=== PATIENT | female | born 1930 | race Caucasian/White ===

== ENCOUNTER → 2016-06-24 | Outpatient (CLI) | payer MEDICARE ==
[2016-02-29 22:20] VITALS: BP 102/56
[~2016-06-24] MED LIST: ACET325T9 PO; ALBU8.5H3 IH; ASPI-482 PO; AZIT1PAC PO; BENZ100C PO; CHLO25TA PO; DIPH25CA58 PO; FAMO1TAB3 PO; FLUO10TA PO; FLUO20CA8 PO; FURO20TA3 PO; MAGN400C PO; MAGN400T22 PO; MAGN400T3 PO; NIFE30TA17 PO; OMEP20TA PO; OPTIVE EYE; OXYM30SP NS; POTA10CA PO; POTA10TA12 PO; POTA20TA4 PO; PRED20TA PO; TRAM50TA PO; VALS160T3 PO; VALS1TAB33 PO; VIT1CAPS12 PO; atorvastatin PO; tylenol arthritis PO
[2016-06-24 08:01] LABS: ALBUMIN/GLOBULIN RATIO 1.1 (1.0-1.7); CREATININE 0.8 mg/dL (0.6-1.0); GFR 68.3; MAGNESIUM 1.7 mg/dL (1.8-2.4); POTASSIUM 3.8 mmol/L (3.5-5.1); TOTAL BILIRUBIN 0.6 mg/dL (0.2-1.0); TOTAL PROTEIN 7.6 g/dL (6.4-8.2)
== END | disposition home or self-care (01) ==
LOC: LAB 07:21
PROVIDERS: ATTEND Nurse Practitioner
DX: E78.5 Hyperlipidemia, unspecified (principal)
CPT/HCPCS: 36415; 80053; 80061; 83735

== ENCOUNTER → 2016-12-17 | Outpatient (CLI) | payer MEDICARE ==
[2016-02-29 22:20] VITALS: BP 102/56
[~2016-12-17] MED LIST changes: -ALBU8.5H3 IH; +ALBU8.5H8 IH; -OMEP20TA PO; +OMEP20TA8 PO
[2016-12-17 08:48] LABS: ALBUMIN 3.8 g/dL (3.4-5.0); ALBUMIN/GLOBULIN RATIO 1.2 (1.0-1.7); CALCIUM 8.9 mg/dL (8.5-10.1); CREATININE 0.7 mg/dL (0.6-1.0); GFR 79.7; MAGNESIUM 2.1 mg/dL (1.8-2.4); TOTAL BILIRUBIN 0.8 mg/dL (0.2-1.0); TOTAL PROTEIN 7.1 g/dL (6.4-8.2)
[2016-12-17 13:15] LABS: THYROID STIM HORMONE (TSH) 1.352 uIU/mL (0.358-3.740)
== END | disposition home or self-care (01) ==
LOC: LAB 07:42
PROVIDERS: ATTEND Nurse Practitioner
DX: E78.5 Hyperlipidemia, unspecified (principal); R00.2 Palpitations
CPT/HCPCS: 36415; 80053; 80061; 83735; 84443

== ENCOUNTER → 2017-04-06 | Outpatient (CLI) | payer MEDICARE ==
[2016-02-29 22:20] VITALS: BP 102/56
[2017-04-06 16:06] LABS: BASO % 0 % (0-3); EOS % 0 % (0-3); HEMATOCRIT 43.8 % (36.0-47.0); HEMOGLOBIN 14.8 g/dL (12.0-15.5); LYMPH % 10 % (24-48); MEAN CORPUSCULAR HEMOGLOBIN 30 pg (25-35); MEAN CORPUSCULAR HGB CONC 34 g/dL (31-37); MEAN CORPUSCULAR VOLUME 90 fL (79-100); MONO # 0.7 x10^3/uL (0.0-1.1); MONO % 7 % (0-9); NEUT # 8.6 x10^3uL (1.8-7.7); NEUT % 83 % (31-73); PLATELET COUNT 245 x10^3/uL (140-400); RED BLOOD COUNT 4.87 x10^6/uL (3.50-5.40); RED CELL DISTRIBUTION WIDTH 13.4 % (11.5-14.5); WHITE BLOOD COUNT 10.4 x10^3/uL (4.0-11.0)
[2017-04-06 16:09] LABS: ALBUMIN/GLOBULIN RATIO 1.1 (1.0-1.7); CREATININE 0.8 mg/dL (0.6-1.0); GFR 68.3; POTASSIUM 3.7 mmol/L (3.5-5.1); TOTAL BILIRUBIN 0.5 mg/dL (0.2-1.0); TOTAL PROTEIN 7.6 g/dL (6.4-8.2)
== END | disposition home or self-care (01) ==
LOC: LAB 15:20
PROVIDERS: ATTEND Internal Medicine
DX: R00.2 Palpitations (principal); I10 Essential (primary) hypertension; E78.5 Hyperlipidemia, unspecified; E78.00 Pure hypercholesterolemia, unspecified; Z87.891 Personal history of nicotine dependence
CPT/HCPCS: 36415; 80053; 84443; 85025

== ENCOUNTER → 2017-04-29 | Outpatient (CLI) | payer MEDICARE ==
[2016-02-29 22:20] VITALS: BP 102/56
--- NOTE | 2017-04-29 11:19 | RAD ---
Bone densitometry scan, 04/29/2017: History: Postmenopausal screening The lumbar spine and left hip were examined utilizing a DEXA technique. The bone mineral density in the lumbar spine as measured from the L1-L4 levels is 1.52 g/sq cm. This yields a T score of 2.9 which is in the normal range. Known hypertrophic degenerative changes are presumably elevating this measurement. The total T score at the left hip is -0.6. This value is also in the normal range. This probably more accurately reflects the patient's overall bone mineral density status. IMPRESSION: Normal bone mineral density measurements.
--- NOTE | 2017-04-29 11:43 | RAD ---
DATE: 04/29/2017 EXAM: DIGITAL SCREEN BILAT W/CAD HISTORY: Routine screening COMPARISON: 04/04/2016 This study was interpreted with the benefit of Computerized Aided Detection (CAD). FINDINGS: Breast Density: HETERO The breast parenchyma Is heterogeneouslyy dense, which could reduce sensitivity of mammography. Breast parenchyma level C. There are no dominant suspicious masses, suspicious microcalcifications or evidence of architectural distortion. Benign-appearing calcifications identified in the bilateral breasts. IMPRESSION: Benign findings BI-RADS CATEGORY: 2 BENIGN FINDING RECOMMENDED FOLLOW-UP: 12M 12 MONTH FOLLOW-UP PQRS compliance statement: Patient information was entered into a reminder system with a target due date 04/29/2018 for the next mammogram. Mammography is a sensitive method for finding small breast cancers, but it does not detect them all and is not a substitute for careful clinical examination. A negative mammogram does not negate a clinically suspicious finding and should not result in delay in biopsying a clinically suspicious abnormality. "Our facility is accredited by the [employer] Mammography [employer]."
== END | disposition home or self-care (01) ==
LOC: DXRAD 09:45
PROVIDERS: ATTEND Family Medicine
DX: Z12.31 Encounter for screening mammogram for malignant neoplasm of breast (principal); I10 Essential (primary) hypertension; Z78.0 Asymptomatic menopausal state; Z87.891 Personal history of nicotine dependence
CPT/HCPCS: 77067; 77080

== ENCOUNTER → 2017-06-08 | Outpatient (CLI) | payer MEDICARE ==
[2016-02-29 22:20] VITALS: BP 102/56
[2017-06-08 10:29] LABS: ALBUMIN 3.9 g/dL (3.4-5.0); ALBUMIN/GLOBULIN RATIO 1.1 (1.0-1.7); CALCIUM 9.3 mg/dL (8.5-10.1); CREATININE 0.7 mg/dL (0.6-1.0); GFR 79.5; POTASSIUM 3.8 mmol/L (3.5-5.1); TOTAL BILIRUBIN 0.5 mg/dL (0.2-1.0); TOTAL PROTEIN 7.6 g/dL (6.4-8.2)
== END ==
LOC: LAB 08:12
PROVIDERS: ATTEND Nurse Practitioner
DX: E78.5 Hyperlipidemia, unspecified (principal)
CPT/HCPCS: 36415; 80053; 80061

== ENCOUNTER → 2017-10-26 | Outpatient (CLI) | payer MEDICARE ==
[2016-02-29 22:20] VITALS: BP 102/56
[2017-10-26 10:02] LABS: ALBUMIN/GLOBULIN RATIO 1.2 (1.0-1.7); CREATININE 0.7 mg/dL (0.6-1.0); GFR 79.5; POTASSIUM 3.5 mmol/L (3.5-5.1); TOTAL BILIRUBIN 0.5 mg/dL (0.2-1.0); TOTAL PROTEIN 7.4 g/dL (6.4-8.2)
== END | disposition home or self-care (01) ==
LOC: LAB 09:32
PROVIDERS: ATTEND Nurse Practitioner
DX: I10 Essential (primary) hypertension (principal); E78.5 Hyperlipidemia, unspecified; E78.00 Pure hypercholesterolemia, unspecified; F32.9 Major depressive disorder, single episode, unspecified; E87.6 Hypokalemia; E83.42 Hypomagnesemia; K21.9 Gastro-esophageal reflux disease without esophagitis; Z90.49 Acquired absence of other specified parts of digestive tract; Z87.891 Personal history of nicotine dependence; Z96.653 Presence of artificial knee joint, bilateral; Z96.641 Presence of right artificial hip joint
CPT/HCPCS: 36415; 80053

== ENCOUNTER → 2017-11-13 | Outpatient (CLI) | payer MEDICARE ==
[2016-02-29 22:20] VITALS: BP 102/56
[2017-11-13 08:49] LABS: CALCIUM 9.1 mg/dL (8.5-10.1); CREATININE 0.8 mg/dL (0.6-1.0); GFR 68.2; POTASSIUM 3.5 mmol/L (3.5-5.1)
== END | disposition home or self-care (01) ==
LOC: LAB 08:27
PROVIDERS: ATTEND Nurse Practitioner
DX: I10 Essential (primary) hypertension (principal); E78.00 Pure hypercholesterolemia, unspecified; E78.5 Hyperlipidemia, unspecified; Z82.49 Family history of ischemic heart disease and other diseases of the circulatory system; E87.6 Hypokalemia; E83.42 Hypomagnesemia; K21.9 Gastro-esophageal reflux disease without esophagitis; Z87.891 Personal history of nicotine dependence; Z96.653 Presence of artificial knee joint, bilateral; Z90.49 Acquired absence of other specified parts of digestive tract; Z90.710 Acquired absence of both cervix and uterus; Z88.0 Allergy status to penicillin; Z88.8 Allergy status to other drugs, medicaments and biological substances; Z88.6 Allergy status to analgesic agent
CPT/HCPCS: 36415; 80048

== ENCOUNTER → 2018-02-19 | Outpatient (CLI) | payer MEDICARE ==
[2016-02-29 22:20] VITALS: BP 102/56
[2018-02-19 09:39] LABS: ALBUMIN 3.9 g/dL (3.4-5.0); CREATININE 0.8 mg/dL (0.6-1.0); GFR 68.2; MAGNESIUM 1.9 mg/dL (1.8-2.4); POTASSIUM 3.4 mmol/L (3.5-5.1); TOTAL BILIRUBIN 0.6 mg/dL (0.2-1.0); TOTAL PROTEIN 7.7 g/dL (6.4-8.2)
--- NOTE | 2018-02-19 13:44 | RAD ---
Bilateral lower extremity venous insufficiency ultrasound exam, 02/19/2018: HISTORY: Leg edema The greater saphenous and lesser saphenous veins were examined utilizing grayscale and color imaging as well as spectral Doppler analysis. The greater saphenous veins in both upper thighs are widely patent and show no significant reflux. The lesser saphenous veins in both lower legs are also patent and show no significant reflux. IMPRESSION: No significant reflux was identified in the greater saphenous or lesser saphenous veins in either lower extremity. Electronically signed by: Ceasar Romero MD (02/19/2018 1:40 PM) [facility]
== END | disposition home or self-care (01) ==
LOC: US 08:28
PROVIDERS: ATTEND Nurse Practitioner
DX: R60.0 Localized edema (principal)
CPT/HCPCS: 36415; 80053; 80061; 82306; 83735; 93970

== ENCOUNTER → 2018-03-04 | Outpatient (CLI) | payer MEDICARE ==
[2016-02-29 22:20] VITALS: BP 102/56
[~2018-03-04] MED LIST changes: -CHLO25TA PO; +CHLO25TA9 PO
[2018-03-04 09:29] LABS: CALCIUM 9.1 mg/dL (8.5-10.1); CREATININE 0.8 mg/dL (0.6-1.0); GFR 68.2; POTASSIUM 4.1 mmol/L (3.5-5.1)
== END | disposition home or self-care (01) ==
LOC: LAB 08:34
PROVIDERS: ATTEND Nurse Practitioner
DX: R60.0 Localized edema (principal)
CPT/HCPCS: 36415; 80048

== ENCOUNTER → 2018-05-17 | Outpatient (CLI) | payer MEDICARE ==
[2016-02-29 22:20] VITALS: BP 102/56
[~2018-05-17] MED LIST changes: +ALBU2.5V8 IH; -ALBU8.5H8 IH
[2018-05-19 11:33] LABS: CALCIUM 9.1 mg/dL (8.5-10.1); CREATININE 0.8 mg/dL (0.6-1.0); POTASSIUM 4.1 mmol/L (3.5-5.1)
== END | disposition home or self-care (01) ==
LOC: LAB 14:22
PROVIDERS: ATTEND Nurse Practitioner
DX: R00.2 Palpitations (principal)
CPT/HCPCS: 36415; 80048; 83735

== ENCOUNTER → 2018-06-09 | Outpatient (CLI) | payer MEDICARE ==
[2016-02-29 22:20] VITALS: BP 102/56
--- NOTE | 2018-06-09 10:24 | RAD ---
DATE: 06/09/2018 EXAM: DIGITAL SCREEN BILAT W/CAD HISTORY: Routine screening COMPARISON: Previous mammogram from 2018 and 2017. This study was interpreted with the benefit of Computerized Aided Detection (CAD). FINDINGS: Breast density category C: The breasts are heterogeneously dense which may obscure small masses. There are no dominant suspicious masses, suspicious microcalcifications or evidence of architectural distortion. Benign-appearing calcifications identified in the bilateral breasts. IMPRESSION: Benign findings BI-RADS CATEGORY: 2 BENIGN FINDING RECOMMENDED FOLLOW-UP: 12M 12 MONTH FOLLOW-UP PQRS compliance statement: Patient information was entered into a reminder system with a target due date for the next mammogram. Mammography is a sensitive method for finding small breast cancers, but it does not detect them all and is not a substitute for careful clinical examination. A negative mammogram does not negate a clinically suspicious finding and should not result in delay in biopsying a clinically suspicious abnormality. "Our facility is accredited by the [employer] Mammography [employer]."
== END | disposition home or self-care (01) ==
LOC: MAMMO 09:52
PROVIDERS: ATTEND Family Medicine
DX: Z12.31 Encounter for screening mammogram for malignant neoplasm of breast (principal)
CPT/HCPCS: 77063; 77067

== ENCOUNTER → 2018-11-20 | Outpatient (CLI) | payer MEDICARE ==
[2016-02-29 22:20] VITALS: BP 102/56
[2018-11-20 09:25] LABS: ALBUMIN 4.1 g/dL (3.4-5.0); ALBUMIN/GLOBULIN RATIO 1.2 (1.0-1.7); CREATININE 0.8 mg/dL (0.6-1.0); TOTAL BILIRUBIN 0.6 mg/dL (0.2-1.0); TOTAL PROTEIN 7.6 g/dL (6.4-8.2)
== END | disposition home or self-care (01) ==
LOC: LAB 08:19
PROVIDERS: ATTEND Nurse Practitioner
DX: E78.5 Hyperlipidemia, unspecified (principal)
CPT/HCPCS: 36415; 80053; 80061

== ENCOUNTER → 2019-05-09 | Outpatient (CLI) | payer MEDICARE ==
[2016-02-29 22:20] VITALS: BP 102/56
[~2019-05-09] MED LIST changes: +FLUO20CA20 PO; -FLUO20CA8 PO; -MAGN400T3 PO; +MAGN400T5 PO; -NIFE30TA17 PO; +NIFE30TA95 PO; -OXYM30SP NS; +OXYM30SP25 NS
[2019-05-09 12:58] LABS: CALCIUM 8.7 mg/dL (8.5-10.1); CREATININE 0.8 mg/dL (0.6-1.0); GFR 67.8; POTASSIUM 4.5 mmol/L (3.5-5.1)
== END | disposition home or self-care (01) ==
LOC: LAB 11:50
PROVIDERS: ATTEND Nurse Practitioner
DX: I13.10 Hypertensive heart and chronic kidney disease without heart failure, with stage 1 through stage 4 chronic kidney disease, or unspecified chronic kidney disease (principal); N18.9 Chronic kidney disease, unspecified
CPT/HCPCS: 36415; 80048; 83735

== ENCOUNTER → 2020-01-16 | Outpatient (CLI) | payer MEDICARE ==
[2016-02-29 22:20] VITALS: BP 102/56
--- NOTE | 2020-01-16 11:25 | RAD ---
BILATERAL SCREENING MAMMOGRAM History: Routine screening. Comparison: 06/09/2018, T7 0 18 L1 13 2016, 02/12/2015. Technique: Routine bilateral digital mammogram views were obtained. Findings: Breast Tissue Density C : The breasts are heterogeneously dense, which may obscure small masses. There are no dominant masses, suspicious microcalcifications, or architectural distortion. IMPRESSION: No mammographic evidence of malignancy. Recommend routine screening. BI-RADS category 1: Negative. The images were reviewed with computer aided detection. Patient information is entered into the reminder system with a target due date for the next screening mammogram. Mammography is the most sensitive method for finding small breast cancers, but it does not detect them all and is not a substitute for careful clinical examination. A negative mammogram does not negate a clinically suspicious finding and should not result in delay in biopsying a clinically suspicious abnormality. "Our facility is accredited by the [employer]ammography [employer]." Electronically signed by: Trey Dietz MD (01/16/2020 11:22 AM) [id number]
== END ==
LOC: MAMMO 10:27
PROVIDERS: ATTEND Family Medicine
DX: Z12.31 Encounter for screening mammogram for malignant neoplasm of breast (principal)
CPT/HCPCS: 77067

== ENCOUNTER → 2020-10-18 | Outpatient (CLI) | payer MEDICARE ==
[2016-02-29 22:20] VITALS: BP 102/56
[~2020-10-18] MED LIST changes: +IOHEXOL 300 MG/ML 75 ML VIAL. IV ONE
[2020-10-18 08:44] LABS: CREATININE 0.8 mg/dL (0.6-1.0); GFR 67.7
--- NOTE | 2020-10-18 09:48 | RAD ---
CT HEAD WITHOUT AND WITH IV CONTRAST History: Reason: SUDDEN ONSET OF DIPLOPIA / Spl. Instructions: PENDING LABS / History: Comparison: February 19, 2016 Technique: CT imaging was performed of the head without and with contrast. Exposure: One or more of the following individualized dose reduction techniques were utilized for thi s examination: 1. Automated exposure control 2. Adjustment of the mA and/or kV according to patient size 3. Use of iterative reconstruction technique. Findings: No intracranial hemorrhage. No mass effect. No hydrocephalus. Extra-axial spaces are unremarkable. N o pathologic enhancement. Unchanged nonspecific calcification within the right cerebellum, may relate to prior insult. Imaged orbits are unremarkable. Imaged paranasal sinuses and mastoid air cells are clear. No acute ca lvarial fracture. TMJ arthropathy. Patent superior sagittal, straight, transverse and sigmoid venous sinuses. Impression: 1. No acute intracranial abnormality. Electronically signed by: Mukul Mas DO (10/18/2020 9:45 AM) [id number]
== END ==
LOC: CT 08:10
PROVIDERS: ATTEND Ophthalmology
DX: G93.89 Other specified disorders of brain (principal); H53.2 Diplopia; M26.659 Arthropathy of unspecified temporomandibular joint
CPT/HCPCS: 36415; 70470; 82565; 84520; Q9967

== ENCOUNTER → 2020-10-22 | Outpatient (CLI) | payer MEDICARE ==
[2016-02-29 22:20] VITALS: BP 102/56
[~2020-10-22] MED LIST changes: -IOHEXOL 300 MG/ML 75 ML VIAL. IV ONE
--- NOTE | 2020-10-22 08:15 | RAD ---
EXAM: 3 Views Right Shoulder DATE: 10/22/2020 7:59 AM INDICATION: Reason: RIGHT SHOULDER PAIN / Spl. Instructions: / History: COMPARISON: No Prior FINDINGS: There is no evidence for acute fracture or dislocation. AC joint is congruent. Small glenohumeral kayce nt osteophytes are seen. AC joint degenerative changes are seen with inferior projecting osteophytes. Humeral head is not high riding. Amorphous calcifications in the region of the right rotator cuff. IMPRESSION: 1. No acute fracture or dislocation. 2. 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 3. 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 Electronically signed by: Thierry Gutierrez MD (10/22/2020 8:13 AM) [id number]
== END ==
LOC: RAD 07:55
PROVIDERS: ATTEND Family Medicine
DX: M19.011 Primary osteoarthritis, right shoulder (principal); M25.711 Osteophyte, right shoulder; M25.811 Other specified joint disorders, right shoulder
CPT/HCPCS: 73030